=== PATIENT | female | born 1990 ===

== ENCOUNTER 2018-06-05 20:23 | Emergency (ER) | payer OTHER ==
[~2018-06-05] VITALS: Ht 175.3 cm; Wt 59.0 kg
[2018-06-05] MEDS ORDERED: IBUPROFEN600 MG ORAL (21:36)
[2018-06-05 21:57] VITALS: BP 110/75
[2018-06-05 21:58] VITALS: BP 110/75
--- NOTE | 2018-06-05 22:07 | Diagnostic Imaging Report ---
EXAM: XR Chest, 1 View CLINICAL HISTORY: SOB TECHNIQUE: Frontal view of the chest. COMPARISON: No relevant prior studies available. FINDINGS: Normal heart size. No evidence for consolidation, edema or other acute cardiopulmonary process. IMPRESSION: No acute cardiopulmonary process
--- NOTE | 2018-06-06 14:11 | Emergency Room Report ---
History of Present Illness General Chief Complaint: Chest Pain Source: Patient Present Illness HPI Patient is a 27-year-old female presented after increased right-sided chest pain. Patient reports having increased sharp pain to the right side of her chest. This is described as worse with movement. She reports having increased pain with deep breaths. This of been present for approximately one week. She denies any recent trauma. She reports having prior breast augmentation with silicone implant.She reports having increased pain but had not taken any medications.She denies any fever or productive cough. She denies any new. Leg pain or swelling. Allergies: Coded Allergies: No Known Allergies (Unverified , 06/05/18) Patient History Past Medical History: see triage record Last Menstrual Period: 1 week ago Now: No Reviewed Nursing Documentation: PMH: Agreed; PSxH: Agreed Nursing Documentation-PMH Hx Cardiac Problems: Yes - bradycardia Hx Gastrointestinal Problems: Yes - appendectomy History Of Psychiatric Problem: Yes - depression Review of Systems All Other Systems: negative except mentioned in HPI Physical Exam Vital Signs Date Time Temp Pulse Resp B/P (MAP) Pulse Ox O2 Delivery O2 Flow Rate FiO2 06/05/18 20:34 98.1 71 16 103/73 100 Room Air General Appearance: well appearing, no apparent distress, alert, GCS 15 Head: normocephalic, atraumatic ENT: hearing grossly normal, normal voice Neck: full range of motion, supple Respiratory: no respiratory distress, speaking full sentences Gastrointestinal: normal inspection, normal bowel sounds, non tender, soft Musculoskeletal: no calf tenderness Neurologic: normal inspection, alert, oriented x3, responsive, airborne and air delivery specialist III-XII nml as tested, normal gait Psychiatric: mood/affect normal Skin: no rash Medical Decision Making Diagnostic Impression: Primary Impression: Nonspecific chest pain ER Course Patient presented for right-sided chest pain. Differential diagnosis included but was not limited to acute coronary syndrome, pulmonary embolism, pneumonia, aortic dissection, shingles, pneumothorax, aortic dissection, esophageal rupture , pericarditis. Patient has a benign exam and does not appear to require any laboratory testing at this time. The patient was noted to have had tenderness to right chest wall. The chest x-ray one view interpreted by me showed normal bony alignment without evident fracture or pneumothorax. The patient is advised to follow-up with primary care physician for reevaluation. The patient is advised to have the breast implant rechecked and was given surgical referral. Labs Test 06/05/18 20:55 Urine HCG, Qualitative Negative (NEGATIVE) Last Vital Signs Date Time Temp Pulse Resp B/P (MAP) Pulse Ox O2 Delivery O2 Flow Rate FiO2 06/05/18 21:58 98.0 16 110/75 100 Room Air 06/05/18 21:57 77 Status: improved Disposition: HOME, SELF-CARE Condition: Stable Scripts Ibuprofen* (MOTRIN*) 600 Mg Tablet 600 MG ORAL Q8H PRN for For Pain, #30 TAB 0 Refills Prov: Anthony Owens MD 06/05/18 Referrals: Ervin Hale Patient Instructions: Nonspecific Chest Pain Anthony Owens MD Jun 06, 2018 14:11
== END 2018-06-05 21:58 | disposition home or self-care (01) ==
LOC: EMR 21:39
DX: R07.9 Chest pain, unspecified (principal); F32.9 Major depressive disorder, single episode, unspecified
CPT/HCPCS: 71045; 81025; 99283